=== PATIENT | female | born 1955 | race Caucasian/White ===

== ENCOUNTER 2016-08-11 15:06 | Emergency (ER) | payer BC ==
[~2016-08-11 15:06] MED LIST: NO MEDS
[2016-08-11 15:58] LABS: BASOPHILS 0.7 %; BASOPHILS ABSOLUTE 0.06 10/3/uL (0.0-0.16); EOSINOPHILS 3.2 %; EOSINOPHILS ABSOLUTE 0.26 10/3/uL (0.0-0.53); HEMATOCRIT 31.5 % (36.0-48.0); IMMATURE GRANULOCYTES 0.1 %; IMMATURE GRANULOCYTES ABSOLUTE 0.01 10/3/uL (0.0-0.11); LYMPHOCYTES ABSOLUTE 1.45 10/3/uL (0.67-4.30); MEAN CORPUS HGB CONC 28.6 g/dL (32.0-36.0); MEAN CORPUSCULAR HEMOGLOB 18.6 pg (26.0-34.0); MEAN CORPUSCULAR VOLUME 64.9 fL (80-100); MEAN PLATELET VOLUME 9.4 fL (9.2-13.0); MONOCYTES 7.1 %; MONOCYTES ABSOLUTE 0.57 10/3/uL (0.21-1.20); NEUTROPHILS 70.9 %; PLATELET COUNT 261 10/3/uL (150-400); RBC DISTRIBUTION WIDTH 18.9 % (12.0-16.0); RED CELL COUNT 4.85 10/6/uL (4.0-5.6)
[2016-08-11 16:01] LABS: ASCORBIC ACID (UR NOT ORDER) NEG (NEG); BILIRUBIN, URINE NEGATIVE (NEG); ER URINALYSIS TAT 0 Hrs 14 Mins; KETONE, URINE NEGATIVE (NEG); LEUKOCYTE ESTERASE(NOT OR LARGE (NEG); NITRITE (URINE) NEG (NEG); WBC (NOT ORDERED) (RFLEX) 5 (0-5)
[2016-08-11 16:02] LABS: ER CBC TAT 0 Hrs 15 Mins; MANUAL DIFF NO %; WHITE BLOOD CELLS 8.1 10/3/uL (4.5-10.5)
[2016-08-11 16:06] LABS: A/G RATIO 1.1 (0.7-1.9); ALBUMIN 3.6 G/DL (3.5-5.0); ALKALINE PHOSPHATASE 88 U/L (45-117); BUN (BLOOD UREA NITROGEN) 14 MG/DL (6-23); CALCIUM, SERUM 8.5 MG/DL (8.5-10.4); CHLORIDE, SERUM 109 MMOL/L (96-112); CO2 (CARBON DIOXIDE) 24 MMOL/L (24-34); CREATININE 0.72 MG/DL (0.55-1.02); GFR AFRICAN AMERICAN 103 ML/MIN (>=60); GFR NON AFRICAN AMERICAN 89 ML/MIN (>=60); GLOBULIN 3.2 G/DL (2.5-4.1); GLUCOSE, SERUM 77 MG/DL (60-99); SGOT(AST) 18 U/L (5-40); SGPT(ALT) 18 U/L (5-65); SODIUM, SERUM 143 MMOL/L (135-148); TOTAL BILIRUBIN 0.2 MG/DL (0-1.2); TOTAL PROTEIN 6.8 G/DL (6.0-8.5)
[2016-08-11 16:08] LABS: LACTATE 0.8 MMOL/L (0.3-2.4)
[2016-08-11 16:17] LABS: ANISOCYTOSIS 1+ (5-10/OIF) (0-5/OIF); PLATELET ESTIMATE ADQ (ADEQUATE)
[2016-08-11 16:18] LABS: TEARDROP SHAPED RBCS OCC (0-2/OIF)
[2016-08-11 16:25] LABS: HYPOCHROMIA 3+ (>30/OIF) (0-2/OIF)
== END 2016-08-11 19:02 | disposition home or self-care (01) ==
LOC: ER 15:06
PROVIDERS: Hospitalist; Physician Assistant
DX: K29.70 Gastritis, unspecified, without bleeding (principal); K21.9 Gastro-esophageal reflux disease without esophagitis; F17.200 Nicotine dependence, unspecified, uncomplicated
CPT/HCPCS: 74176; 80053; 81001; 83605; 83690; 85025; 87086; 96374; 96375; 99284; A9270-GY; J2405

== ENCOUNTER 2016-08-13 04:05 | Inpatient (IN) | payer BC ==
--- NOTE | ~2016-08-13 | CN ---
Consultation Report [facility] [address] [place]. [address] NAME: TAMMY MAI : 51 STATUS : ADM IN [facility]#: [id number] AGE: 61 ADM/REG DATE : 08/13/16 MR#: [id number] REPORT SERV DATE: 08/13/16 DICTATED BY: MARY JO WOODALL DATE: 08/13/16 REPORT STATUS : Draft TRANSCRIBED BY: MODBharathi DATE: 08/13/16 GI CONSULT DATE OF CONSULTATION: REASON FOR CONSULTATION: GI consult regarding hematemesis. HISTORY OF PRESENT ILLNESS: This is a 61-year-old, woman, who presented with hematemesis. She has had chronic epigastric discomfort for the past one year, worsening over the past three weeks. She awakened from sleep last night with nausea and subsequent hematemesis bright red blood. She has had no hematemesis since that time. She has had intermittent GERD symptoms, but no dysphagia. She was not taking acid suppression up until a couple of days ago. She has been taking both Aleve and ibuprofen chronically. She has had no diarrhea or constipation. No melena or hematochezia other than this morning, at which point she developed melena. No recent endoscopy. MEDICAL HISTORY: Remarkable for rotator cuff repair and ectopic . ALLERGIES: NONE. MEDICATIONS: Tylenol, Prilosec as needed, and Carafate. FAMILY HISTORY: Negative for GI malignancy. SOCIAL HISTORY: She does not use alcohol significantly. REVIEW OF SYSTEMS: A complete review of systems was obtained and negative except that noted in the history of present illness. PHYSICAL EXAMINATION: VITAL SIGNS: She is afebrile. Heart rate is 70, blood pressure systolic 120, respirations 16. HEENT: Sclerae anicteric. NECK: Supple without lymphadenopathy. Pharynx is pink without exudate. LUNGS: Clear to auscultation bilaterally. HEART: Regular rate and rhythm. S1 and S2 heard without rubs or gallops. ABDOMEN: Normal bowel sounds. Belly is soft and nondistended. There is mild epigastric tenderness without rebound or guarding. No hepatosplenomegaly is detected. EXTREMITIES: No pedal edema or rash. NEUROLOGIC: Alert and oriented without focal deficit. Muscle exam is nontender. DATA: White blood cell count 11.8, hematocrit 23.1, MCV 65.8, platelets 248. INR 1.2. BUN 25, creatinine 0.6. Liver tests are normal. Consultation Report [place] [id number] [place]. [address] NAME: TAMMY MAI : 51 STATUS : ADM IN PAT#: [id number] AGE: 61 ADM/REG DATE : 08/13/16 MR#: [id number] REPORT SERV DATE: 08/13/16 DICTATED BY: MARY JO WOODALL DATE: 08/13/16 REPORT STATUS : Draft TRANSCRIBED BY: OSCAR DATE: 08/13/16 CT scan shows thickened proximal stomach with large hiatal hernia. IMPRESSION: Hematemesis and melena in the setting of NSAID use without acid suppression, likely peptic ulcer disease. I suspect Hector lesions as well given large hiatal hernia. RECOMMENDATIONS: 1. Continue Protonix drip. 2. Transfusion with packed red blood cells. 3. EGD to follow. CC/OSCAR Mary Jo Woodall M.D. / [id number] CC: Nate River M.D.
--- NOTE | ~2016-08-13 | HP ---
History And Physical [place] [id number] [facility] [place]. [address] NAME: TAMMY DOUGLAS : 51 STATUS : ADM IN [facility]#: [id number] AGE: 61 ADM/REG DATE : 08/13/16 MR#: [id number] REPORT SERV DATE: 08/13/16 DICTATED BY: PAUL CARNES DATE: 08/13/16 REPORT STATUS : Draft TRANSCRIBED BY: MODBharathi DATE: 08/13/16 DATE OF ADMISSION: 08/13/2016 REASON FOR ADMISSION: Acute upper GI bleed with acute blood loss anemia. HISTORY OF PRESENT ILLNESS: Ms. Douglas is a 61-year-old woman with a history of hiatal hernia, acid reflux, COPD, chronic bronchitis, and ongoing smoking. She chronically takes NSAIDs for various chronic pains and had recently been seen in the emergency department for GI discomfort, abdominal pain, but workup has been okay. She returned because she had large bright red blood hematemesis at home, was found to have significant acute anemia. She is hemodynamically stable. States that she feels fine despite the hematemesis. She has had no recent chest pain, fevers, chills, night sweats, or significant purulence of sputum. PAST MEDICAL HISTORY: Significant for likely MIS with a positive screen, COPD, chronic bronchitis. She is an every day pack a day smoker with a 41-tdpf-efim history. No alcohol abuse or illicit drug use. FAMILY HISTORY: Noncontributory to this acute presentation. REVIEW OF SYSTEMS: Review of 10 systems was performed with the patient and is positive for what was noted above. PHYSICAL EXAMINATION: GENERAL: She is awake and alert. VITAL SIGNS: Her vital signs are actually fairly stable. LUNGS: Otherwise clear to auscultation and percussion bilaterally. CARDIOVASCULAR: She has S1 and S2, which are regular rate and rhythm. ABDOMEN: Benign. She has no edema, no clubbing, no cyanosis. ASSESSMENT AND PLAN: Anemia: She has acute blood loss anemia with an acute upper gastrointestinal bleed. She has been started on a Protonix drip and is being seen by GI with plans of an upper GI endoscopy this morning. The concern is for acute peptic ulcer disease, particularly given her hiatal hernia, acid reflux, and chronic use of NSAIDs, and chronic use of tobacco. She has an acute exacerbation of her chronic obstructive pulmonary disease and will remain on her chronic maintenance medications minus the NSAIDs. CB/OSCAR Paul Carnes M.D. / [id number] History And Physical [address] [address] NAME: TAMMY DOUGLAS : 51 STATUS : ADM IN PAT#: [id number] AGE: 61 ADM/REG DATE : 08/13/16 MR#: [id number] REPORT SERV DATE: 08/13/16 DICTATED BY: PAUL CARNES DATE: 08/13/16 REPORT STATUS : Draft TRANSCRIBED BY: OSCAR DATE: 08/13/16 CC: Paul Carnes M.D.
--- NOTE | ~2016-08-13 | OP ---
[place] Of [place] [id number] [place]. [address] NAME: TAMMY MAI : 51 STATUS : ADM IN [facility]#: [id number] AGE: 61 ADM/REG DATE : 08/13/16 MR#: [id number] REPORT SERV DATE: 08/13/16 DICTATED BY: MARY JO WOODALL DATE: 08/13/16 REPORT STATUS : Draft TRANSCRIBED BY: MODBharathi DATE: 08/13/16 DATE OF PROCEDURE: 08/13/2016 PROCEDURE: Esophagogastroduodenoscopy with biopsy. INDICATIONS: Hematemesis with melena. Recent NSAID use. MEDICATIONS: As per Anesthesia. The patient was intubated prior to the examination for airway protection. CONSENT: Informed consent was obtained from the patient by me prior to the procedure. Risks, benefits, and alternatives were discussed including the risk of bleeding, perforation, infection, reaction to medicine, missed lesion, and cardiopulmonary complications. DESCRIPTION OF PROCEDURE: After the patient was sedated, intubated, placed in the left lateral decubitus position, the gastroscope was passed into the mouth and advanced under direct visualization to the second portion of the duodenum without difficulty. The endoscope was withdrawn with careful examination of mucosa throughout the duodenum, entire stomach with gastric retroflexion, and esophagus. Views were excellent. The patient tolerated the procedure well. FINDINGS: 1. Normal-appearing duodenum. 2. Multiple superficial 5 mm gastric ulcerations found within the antrum, biopsied. 3. Normal-appearing body of stomach. 4. Multiple superficial ulcerations (Hector lesions) located over the hiatal hernia. 5. Hiatal hernia. 6. Punched-out 10 mm gastric ulcer with normal surrounding edges located high on the lesser curve. No visible vessel or other stigmata. 7. Normal-appearing esophagus other than [place] class A esophagitis. RECOMMENDATIONS: 1. Stop NSAIDs. 2. Protonix drip. 3. ICU today and monitor hematocrit. Clear liquid diet for now. CC/JIMENEZL Mary Jo Woodall M.D. / [id number] Record Of [facility] [address] [place]. [address] NAME: TAMMY MAI : 51 STATUS : ADM IN PAT#: [id number] AGE: 61 ADM/REG DATE : 08/13/16 MR#: [id number] REPORT SERV DATE: 08/13/16 DICTATED BY: MARY JO WOODALL DATE: 08/13/16 REPORT STATUS : Draft TRANSCRIBED BY: OSCAR DATE: 08/13/16 CC: Nate River M.D.
--- NOTE | ~2016-08-13 | DS ---
Discharge Summary [facility] [address] [facility] [place]. [address] NAME: TAMMY MAI : 51 STATUS : ADM IN [facility]#: [id number] AGE: 61 ADM/REG DATE : 08/13/16 MR#: [id number] REPORT SERV DATE: 08/15/16 DICTATED BY: SHAWN BUENROSTRO DATE: 08/15/16 REPORT STATUS : Draft TRANSCRIBED BY: MODL DATE: 08/15/16 ADMISSION DATE: 08/13/2016 DISCHARGE DATE: 08/15/2016 FINAL HOSPITAL DIAGNOSES: 1. Gastrointestinal bleed. 2. Chronic back pain. 3. Chronic headaches. CONSULTATIONS: Dr. Gabriel Woodall, GI. PROCEDURES: 1. Upper endoscopy showing normal appearing duodenum, multiple superficial 5 mm gastric ulcerations within the antrum, normal appearing body of the stomach, multiple superficial ulcerations over the hiatal hernia. Punched-out 10 mm gastric ulcer with normal surrounding edges, located high in the lesser curvature, no visible vessel or other stigmata, normal-appearing esophagus other than class A esophagitis. 2. CT of the abdomen and pelvis done on 08/11/2016 showing large hiatal hernia, upper third of the stomach residing intrathoracically, mid and upper stomach appeared thickened with some edema and the surrounding fat. Also, multiple tiny lymph nodes within the lower mediastinum surrounding the stomach measuring up to 7 mm in size, may be due to gastritis with reactive lymph nodes. Ischemia underlying neoplasm is less likely. Trace fluid along the lesser curvature of the stomach. No free air. No bowel obstruction. Low-density right adrenal mass most compatible with an adenoma. Hepatic steatosis, small fat containing umbilical and supraumbilical hernias without bowel involvement. CURRENT PHYSICAL FINDINGS AND HISTORY OF PRESENT ILLNESS: Please see the initial dictated H and P by Dr. River. In brief, the patient is a 61-year-old female with the above medical history, who presented with acute GI blood loss anemia, felt severe enough to present to the ICU. Vital signs at the time of admission, BP was 197/48, subsequent blood pressures average 120s to 130s over 70. No fever during her hospital stay. Initial heart rate was 92. Lab work; BMP was unremarkable. LFTs were unremarkable. Lactate was 0.8. Initial hemoglobin was 6.3 post transfusion. The patient now received 8.5 to 9, and was stable. Urinalysis showed positive leukocyte esterase, but 14 squamous cells. Urine culture showed multiple suspected contamination. The patient was admitted to the ICU. Overall, she received 3 units of packed red blood cells. GI was consulted and recommended upper endoscopy which was as above. She was placed on a Protonix drip. She was started on mechanical DVT prophylaxis, given her bleeding risk. Her NSAIDs were held. She was able to transfer out of the ICU when stable. She advanced her diet on the floor, had no further bleeding. GI felt she was stable for discharge. She was discharged in stable condition on 08/15/2016. DISPOSITION: Discharged home. MEDICATIONS: Prescription for tramadol 50 mg q.6 p.r.n. was given. She will avoid all over- Discharge Summary [address] [place]. [address] NAME: TAMMY MAI : 51 STATUS : ADM IN [facility]#: [id number] AGE: 61 ADM/REG DATE : 08/13/16 MR#: [id number] REPORT SERV DATE: 08/15/16 DICTATED BY: SHAWN BUENROSTRO DATE: 08/15/16 REPORT STATUS : Draft TRANSCRIBED BY: OSCAR DATE: 08/15/16 the-counter NSAIDs. She will continue her Prilosec 20, but increased to b.i.d. dosing to also continue her Carafate until gone, and Tylenol p.r.n. after that. DISCHARGE PLANNING: We will assist with trying to find her a PCP for followup. DICTATED BY: Jamison Sifuentes/OSCAR Shawn Buenrostro M.D. / [id number] CC: Shawn Buenrostro M.D.
[2016-08-13 04:16] LABS: INTERNATIONAL NORMAL RATI 1.2 UNITS (-); PARTIAL THROMBO TIME 26.1 SEC (22.5-37.2)
[2016-08-13 04:17] LABS: BASOPHILS 0.3 %; BASOPHILS ABSOLUTE 0.04 10/3/uL (0.0-0.16); EOSINOPHILS ABSOLUTE 0.24 10/3/uL (0.0-0.53); IMMATURE GRANULOCYTES 0.3 %; IMMATURE GRANULOCYTES ABSOLUTE 0.03 10/3/uL (0.0-0.11); LYMPHOCYTES 8.8 %; LYMPHOCYTES ABSOLUTE 1.03 10/3/uL (0.67-4.30); MEAN CORPUS HGB CONC 27.3 g/dL (32.0-36.0); MEAN CORPUSCULAR HEMOGLOB 17.9 pg (26.0-34.0); MEAN CORPUSCULAR VOLUME 65.8 fL (80-100); MEAN PLATELET VOLUME 9.5 fL (9.2-13.0); MONOCYTES 5.5 %; MONOCYTES ABSOLUTE 0.65 10/3/uL (0.21-1.20); NEUTROPHILS 83.1 %; NEUTROPHILS ABSOLUTE 9.77 10/3/uL (2.02-8.40); PLATELET COUNT 248 10/3/uL (150-400); RBC DISTRIBUTION WIDTH 19.4 % (12.0-16.0)
[2016-08-13 04:18] LABS: ER CBC TAT 0 Hrs 14 Mins; HEMATOCRIT 23.1 % (36.0-48.0); HEMOGLOBIN 6.3 g/dL (12.0-16.0); RED CELL COUNT 3.51 10/6/uL (4.0-5.6); WHITE BLOOD CELLS 11.8 10/3/uL (4.5-10.5)
[2016-08-13 04:19] LABS: MANUAL DIFF NO %
[2016-08-13 04:23] LABS: BUN (BLOOD UREA NITROGEN) 25 MG/DL (6-23); CALCIUM, SERUM 7.7 MG/DL (8.5-10.4); CHLORIDE, SERUM 115 MMOL/L (96-112); CO2 (CARBON DIOXIDE) 24 MMOL/L (24-34); CREATININE 0.68 MG/DL (0.55-1.02); GFR AFRICAN AMERICAN 108 ML/MIN (>=60); GFR NON AFRICAN AMERICAN 93 ML/MIN (>=60); GLUCOSE, SERUM 194 MG/DL (60-99); POTASSIUM, SERUM 3.8 MMOL/L (3.5-5.3); SGOT(AST) 9 U/L (5-40); SGPT(ALT) 14 U/L (5-65); SODIUM, SERUM 145 MMOL/L (135-148); TOTAL BILIRUBIN 0.1 MG/DL (0-1.2); TOTAL PROTEIN 5.1 G/DL (6.0-8.5)
[2016-08-13 04:24] LABS: ALBUMIN 2.5 G/DL (3.5-5.0); ALKALINE PHOSPHATASE 66 U/L (45-117); GLOBULIN 2.6 G/DL (2.5-4.1)
[2016-08-13] MEDS ORDERED: PRILO PO (04:32)
[2016-08-13] MEDS ORDERED: SUCR PO (04:33)
[2016-08-13] MEDS ORDERED: T PO (04:33)
[2016-08-13] MEDS ORDERED: STAY AWAKE PO (04:36)
[2016-08-13 04:37] LABS: ANISOCYTOSIS 1+ (5-10/OIF) (0-5/OIF); HYPOCHROMIA 3+ (>30/OIF) (0-2/OIF); PLATELET ESTIMATE ADQ (ADEQUATE); POLYCHROMASIA 1+ (2-5/OIF) (0-1/OIF)
[2016-08-13] MEDS ORDERED: 8 HOUR650 MG PO (04:37)
[2016-08-13 10:15] LABS: HEMATOCRIT 27.8 % (36.0-48.0); HEMOGLOBIN 8.6 g/dL (12.0-16.0)
[2016-08-13 16:50] LABS: HEMATOCRIT 24.7 % (36.0-48.0); HEMOGLOBIN 7.5 g/dL (12.0-16.0)
[2016-08-13 22:59] LABS: HEMATOCRIT 27.1 % (36.0-48.0); HEMOGLOBIN 8.5 g/dL (12.0-16.0)
[2016-08-14 05:02] LABS: HEMATOCRIT 27.2 % (36.0-48.0); HEMOGLOBIN 8.4 g/dL (12.0-16.0)
[2016-08-14 10:24] LABS: HEMATOCRIT 28.6 % (36.0-48.0); HEMOGLOBIN 8.7 g/dL (12.0-16.0)
[2016-08-14 16:52] LABS: HEMATOCRIT 30.3 % (36.0-48.0); HEMOGLOBIN 9.5 g/dL (12.0-16.0)
[2016-08-14 21:50] LABS: HEMATOCRIT 27.6 % (36.0-48.0); HEMOGLOBIN 8.5 g/dL (12.0-16.0)
[2016-08-15 05:52] LABS: BASOPHILS ABSOLUTE 0.06 10/3/uL (0.0-0.16); EOSINOPHILS 4.3 %; EOSINOPHILS ABSOLUTE 0.26 10/3/uL (0.0-0.53); HEMATOCRIT 29.7 % (36.0-48.0); HEMOGLOBIN 9.1 g/dL (12.0-16.0); IMMATURE GRANULOCYTES 0.2 %; IMMATURE GRANULOCYTES ABSOLUTE 0.01 10/3/uL (0.0-0.11); LYMPHOCYTES 25.2 %; LYMPHOCYTES ABSOLUTE 1.54 10/3/uL (0.67-4.30); MEAN PLATELET VOLUME 9.3 fL (9.2-13.0); MONOCYTES 7.7 %; MONOCYTES ABSOLUTE 0.47 10/3/uL (0.21-1.20); NEUTROPHILS 61.6 %; NEUTROPHILS ABSOLUTE 3.77 10/3/uL (2.02-8.40); PLATELET COUNT 220 10/3/uL (150-400); RBC DISTRIBUTION WIDTH 21.5 % (12.0-16.0); RED CELL COUNT 4.19 10/6/uL (4.0-5.6)
[2016-08-15 05:55] LABS: MANUAL DIFF NO %; MEAN CORPUS HGB CONC 30.6 g/dL (32.0-36.0); MEAN CORPUSCULAR HEMOGLOB 21.7 pg (26.0-34.0); MEAN CORPUSCULAR VOLUME 70.9 fL (80-100); WHITE BLOOD CELLS 6.1 10/3/uL (4.5-10.5)
[2016-08-15 06:07] LABS: ALKALINE PHOSPHATASE 67 U/L (45-117); CALCIUM, SERUM 8.6 MG/DL (8.5-10.4); CHLORIDE, SERUM 114 MMOL/L (96-112); CO2 (CARBON DIOXIDE) 25 MMOL/L (24-34); CREATININE 0.52 MG/DL (0.55-1.02); GFR AFRICAN AMERICAN 118 ML/MIN (>=60); GFR NON AFRICAN AMERICAN 102 ML/MIN (>=60); PHOSPHORUS, SERUM 3.2 MG/DL (2.5-4.5); SGOT(AST) 10 U/L (5-40); SGPT(ALT) 16 U/L (5-65); SODIUM, SERUM 144 MMOL/L (135-148); TOTAL BILIRUBIN 0.3 MG/DL (0-1.2); TOTAL PROTEIN 6.1 G/DL (6.0-8.5)
[2016-08-15 06:08] LABS: BUN (BLOOD UREA NITROGEN) 6 MG/DL (6-23); DIRECT BILIRUBIN < 0.1 MG/DL (0.0-0.4); GLUCOSE, SERUM 95 MG/DL (60-99); INDIRECT BILIRUBIN(NOT ORDER) 0.2 MG/DL (0.1-0.9)
[2016-08-15 06:33] LABS: ANISOCYTOSIS 1+ (5-10/OIF) (0-5/OIF); PLATELET ESTIMATE ADQ (ADEQUATE); POLYCHROMASIA 1+ (2-5/OIF) (0-1/OIF)
[2016-08-15 06:34] LABS: ELLIPTOCYTES 1+ (3-10/OIF) (0-2/OIF)
[2016-08-15 10:08] LABS: HEMATOCRIT 29.5 % (36.0-48.0)
[2016-08-15] MEDS ORDERED: ULTRAM50 PO (13:51)
== END 2016-08-15 15:32 | disposition home or self-care (01) | DRG 378 ==
LOC: ER 04:05 → MIC 04:52 → 2SO 08-14 13:29
PROVIDERS: Internal Medicine Gastroenterology; Internal Medicine Pulmonary Disease; Specialist
PROC: 0DB68ZX Excision of Stomach, Via Natural or Artificial Opening Endoscopic, Diagnostic (ICD-10-PCS; 2016-08-13)
PROC: 30233N1 Transfusion of Nonautologous Red Blood Cells into Peripheral Vein, Percutaneous Approach (ICD-10-PCS; principal; 2016-08-13 09:10)
DX: K25.4 Chronic or unspecified gastric ulcer with hemorrhage (principal); D62 Acute posthemorrhagic anemia; J44.9 Chronic obstructive pulmonary disease, unspecified; K44.9 Diaphragmatic hernia without obstruction or gangrene; K21.9 Gastro-esophageal reflux disease without esophagitis; J40 Bronchitis, not specified as acute or chronic; F17.210 Nicotine dependence, cigarettes, uncomplicated; G47.33 Obstructive sleep apnea (adult) (pediatric); K29.70 Gastritis, unspecified, without bleeding
CPT/HCPCS: 36415; 36430; 74176; 80048; 80053; 80076; 81001; 83605; 83690; 83735; 84100; 85014; 85018; 85025; 85610; 85730; 86850; 86900; 86901; 86920; 87086; 87641; 88305; 93005; 94640; 96374; 96375; 99284; 99291; A9270-GY; C9113; J2405; P9016

== ENCOUNTER 2016-08-17 15:16 | Inpatient (IN) | payer BC ==
--- NOTE | ~2016-08-17 | HP ---
History And Physical [place] [id number] [facility] [place]. [address] NAME: TAMMY MAI : 51 STATUS : REG ER PAT#: [id number] AGE: 61 ADM/REG DATE : 08/17/16 MR#: [id number] REPORT SERV DATE: 08/17/16 DICTATED BY: DANIELLE EL DATE: 08/17/16 REPORT STATUS : Draft TRANSCRIBED BY: MODL DATE: 08/17/16 DATE OF ADMISSION: 08/17/2016 CHIEF COMPLAINT: GI bleed and abdominal pain. HISTORY OF PRESENT ILLNESS: Obtained from the patient as well as from emergency room documents. Also, prior medical records available to us were thoroughly reviewed. Please note, the patient was just admitted here on 08/13/2016 initially to intensive care unit and then to our Hospitalist Service, and she was discharged home two days ago on 08/15/2016. Discharge diagnosis was GI bleed with upper GI bleed and hematemesis, status post blood transfusion of three units of PRBC for significant acute anemia. The patient was seen and evaluated by GI consult with upper endoscopy performed on 08/13/2016 in intensive care unit. The patient apparently remained stable at the time of discharge with stable H and H with recommendations to avoid NSAIDs. She returned today 48 hours after discharge with abdominal pain, moderate sharp, in the middle of the abdomen, associated with two episodes of bloody stools last night prior to arrival in the emergency room. In the emergency room, the patient was investigated and laboratory data showed significant decrease in her hemoglobin and hematocrit with hemoglobin 7.2 and hematocrit 24.2 from hematocrit 29.5 two days ago and Hemoccult-positive stools. Therefore, the patient was referred to the Hospitalist Service for further management and evaluation. Note that the GI consultation is already obtained and they are aware of the patient's presence and further evaluation with a colonoscopy to be performed tomorrow as per initial planning. Note there is also CT scan of the abdomen and pelvis still pending, ordered in the emergency room. PAST MEDICAL HISTORY: As per H and P from 08/13/2016, addition of acute blood loss anemia, status post blood transfusion of three units of PRBCs during her recent previous admission. PAST SURGICAL HISTORY: As above. FAMILY HISTORY: As per previous H and P. SOCIAL HISTORY: As per previous H and P, unchanged. MEDICATIONS: The patient was discharged home on Prilosec 20 mg p.o. b.i.d., Carafate 1 g p.o. b.i.d., and Ultram 50 mg p.o. q.6 hours p.r.n. pain with recommendation to avoid NSAIDs, which previously she was taking it on a regular basis. ALLERGIES: NO KNOWN DRUG ALLERGIES. REVIEW OF SYSTEMS: As per H and P, otherwise negative in all review of systems. Unchanged from prior H and P from 08/13/2016. PHYSICAL EXAMINATION: GENERAL: Pleasant, in mild distress due to abdominal pain. VITAL SIGNS: Upon arrival in the emergency room, blood pressure 105/53, pulse 97, History And Physical [address] [address] NAME: TAMMY MAI : 51 STATUS : REG ER PAT#: [id number] AGE: 61 ADM/REG DATE : 08/17/16 MR#: [id number] REPORT SERV DATE: 08/17/16 DICTATED BY: DANIELLE EL DATE: 08/17/16 REPORT STATUS : Draft TRANSCRIBED BY: OSCAR DATE: 08/17/16 respiratory rate 16, temperature 97.8, oxygen saturation 96% on room air. HEENT: With pupils equal, round, and reactive to light. Extraocular movements intact. Throat, mild erythema. No exudate. Pale mucosa and pale conjunctivae. Atraumatic and normocephalic. NECK: Supple. No JVD. No bruit. No thyromegaly. No lymph nodes. LUNGS: Bilateral air entry with a few scattered crackles. Good airway movement. HEART: Positive S1 and S2. Regular rate and rhythm. Positive mitral regurgitation murmur at the apex/systolic ejection murmur. No rub, no gallop. PMI not displaced by palpation. ABDOMEN: Positive bowel sounds. Soft with mild tenderness in mid abdomen and epigastric area. No guarding. No rebound tenderness. No hepatosplenomegaly. EXTREMITIES: With decreased range of motion and osteoarthritic changes. No clubbing, no cyanosis, no edema, no calf tenderness. +2 pulses. NEUROLOGIC: Alert and oriented x3. Grossly nonfocal. Anxious. Cranial nerves 2 through 12 grossly intact. Motor strength 5/5 symmetrical bilateral. Deep tendon reflexes 2/2 symmetrical bilateral. BACK: With decreased range of motion. No focal localized tenderness. No CVA tenderness. SKIN: No bruises, no rashes, no lacerations. SIGNIFICANT LABORATORY DATA: Sodium 138, potassium 4.1, chloride 113, bicarb 26, BUN 12, creatinine 0.61, glucose 103, calcium 7.7, albumin 2.6. Other liver function tests within normal limits. White cell count 13 (slightly elevated), hemoglobin is 7.2 with a hematocrit of 24.2, platelet count 239. INR 1.1. CT scan of the abdomen and pelvis without contrast showed no evidence of acute abnormality, hiatal hernia, decreased inflammation of the fat adjacent to the stomach compared with 08/11/2016, stable right adrenal adenoma, and a fat containing periumbilical hernia (full report attached to chart and discussed with the patient). ASSESSMENT AND PLAN AND PROBLEM LIST: The patient is a pleasant 61-year-old white woman, admitted with significant GI bleed and significant and severe anemia. Impression: 1. GI problem:. a. GI bleed with hematochezia. b. Gastroesophageal reflux disease with esophagitis and hiatal hernia by recent endoscopy and recent admission to the hospital. c. Gastritis and Hector ulcerations. d. For all the above, the patient has been restarted on Protonix drip due to her recent history of an upper GI bleed found by upper endoscopy. We are going to obtain GI consultation, monitor H and H, monitor for any kind of hemodynamic compromise, and start preparation for possible colonoscopy in a.m. due to bright red blood and bloody stools. Continue to monitor clinically. A CT scan of the abdomen and pelvis was rechecked and actually showed some improvement compared to the one done a week ago. 2. Anemia with acute blood loss anemia. Presently severe anemia and symptomatic anemia. The patient received three units of PRBCs blood transfusion. Continue to monitor H and H with serial H and H and support with blood products as indicated. 3. Pulmonary with:. History And Physical [place] [id number] [facility] [place]. [address] NAME: TAMMY MAI : 51 STATUS : REG ER PAT#: [id number] AGE: 61 ADM/REG DATE : 08/17/16 MR#: [id number] REPORT SERV DATE: 08/17/16 DICTATED BY: DANIELLE EL DATE: 08/17/16 REPORT STATUS : Draft TRANSCRIBED BY: OSCAR DATE: 08/17/16 a. Chronic obstructive pulmonary disease with chronic bronchitis. b. Tobacco dependency disorder, severe with over 42 years of pack-year smoking history. c. Obstructive sleep apnea by history, not using CPAP machine. d. For all the above, the patient is going to be counseled regarding smoking cessation, provided with education, and offered nicotine replacement therapy as a nicotine patch 21 mg daily. Provide oxygen supplementation and bronchodilator therapy. Encouraged to follow up with primary care provider and manager economic for CPAP machine to treat obstructive sleep apnea. 4. Chronic back pain and chronic headache. The patient to continue on Ultram and avoid the NSAIDs at this moment. PROGNOSIS: Moderately good for this admission. Discussed with the patient and the patient's family. Questions were answered in full. Please note that the patient does not have a primary care provider at this moment. Please note that the patient is a full code at this moment as discussed with the patient at bedside. FRANCISCO/OSCAR Danielle El M.D. / [id number]
--- NOTE | ~2016-08-17 | EGD ---
EGD REPORT [facility] [address] [place]. [address] NAME: TAMMY DOUGLAS : 51 STATUS : ADM IN PAT#: [id number] AGE: 61 ADM/REG DATE : 08/17/16 MR#: [id number] REPORT SERV DATE: 08/18/16 DICTATED BY: JOSE LUIS AWAN DATE: 08/18/16 REPORT STATUS : Draft [facility]ANSCRIBED [facility]: [facility] DATE: 08/18/16 Endoscopy Center Patient Name: Tammy Douglas Date of : 1955 Attending MD: JOSE LUIS AWAN MD Procedure Date No Time: 08/18/2016 Procedure: Upper GI endoscopy Indications: Hematochezia, Melena Medicines: Monitored Anesthesia Care Complications: No immediate complications. Estimated blood loss: Minimal. Procedure: Pre-Anesthesia Assessment: - ASA Grade Assessment: III - A patient with severe systemic disease. After obtaining informed consent, the endoscope was passed under direct vision. Throughout the procedure, the patient's blood pressure, pulse, and oxygen saturations were monitored continuously. The GIF [id number] was introduced through the mouth, and advanced to the third part of duodenum. The upper GI endoscopy was accomplished without difficulty. The patient tolerated the procedure well. Findings: The examined esophagus was normal. A large hiatus hernia was present. One non-bleeding cratered gastric ulcer with a visible vessel was found in the gastric fundus. The lesion was 20 mm in largest dimension. Area was successfully injected with 4 mL of a 1:10,000 solution of epinephrine for hemostasis. Fulguration to ablate the lesion to prevent bleeding by bipolar probe was successful. Estimated blood loss was minimal. Many non-bleeding superficial gastric ulcers with no stigmata of bleeding were found in the gastric antrum. The largest lesion was 3 mm in largest dimension. Biopsies were taken with a cold forceps for Helicobacter pylori testing. Estimated blood loss was minimal. The examined duodenum was normal. The exam was otherwise without abnormality. Impression: - Hiatus hernia. - Gastric ulcer containing visible vessel. Injected. Treated by fulguration. - Gastric ulcers with clean base. Biopsied. - The examination was otherwise normal. EGD REPORT [address] [address] NAME: TAMMY DOUGLAS : 51 STATUS : ADM IN PAT#: [id number] AGE: 61 ADM/REG DATE : 08/17/16 MR#: [id number] REPORT SERV DATE: 08/18/16 DICTATED BY: JOSE LUIS AWAN DATE: 08/18/16 REPORT STATUS : Draft TRANSCRIBED BY: [employer] DATE: 08/18/16 Recommendation: - Clear liquid diet and then advance diet as tolerated by symptoms. - Give Protonix (pantoprazole): 8 mg/hr IV by continuous infusion for 3 days. - Await pathology results. - Perform a colonoscopy today. Procedure Code(s): --- Professional --- 20175, 59, Esophagogastroduodenoscopy, flexible, transoral; with control of bleeding, any method 93213, Esophagogastroduodenoscopy, flexible, transoral; with biopsy, single or multiple Diagnosis Code(s): --- Professional --- K44.9, Diaphragmatic hernia without obstruction or gangrene K25.4, Chronic or unspecified gastric ulcer with hemorrhage K25.9, Gastric ulcer, unspecified as acute or chronic, without hemorrhage or perforation K92.1, Melena CPT copyright 2013 [employer]. All rights reserved. The codes documented in this report are preliminary and upon plant safety leader review may be revised to meet current compliance requirements. Jose Luis Awan MD JOSE LUIS AWAN MD 08/18/2016 8:59 AM This report has been signed electronically. Number of Addenda: 0 Note Initiated On: 08/18/2016 8:24 AM Scope Withdrawal Time 0 hours 0 minutes 0 seconds [address] [id number]
--- NOTE | ~2016-08-17 | DS ---
Discharge Summary [facility] [address] [place]. [address] NAME: TAMMY DOUGLAS : 51 STATUS : DIS IN PAT#: [id number] AGE: 61 ADM/REG DATE : 08/17/16 MR#: [id number] REPORT SERV DATE: 08/22/16 DICTATED BY: JOSE L MEREDITH DATE: 08/21/16 REPORT STATUS : Draft TRANSCRIBED BY: MODL DATE: 08/21/16 ADMISSION DATE: 08/17/2016 DISCHARGE DATE: 08/21/2016 Ms. Douglas is a 61-year-old female with a history of hypertension and tobacco abuse, who presented to the hospital with complaints of abdominal pain and hematochezia. For further details, please refer to H and P dictated by Dr. El on 08/17/2016. HOSPITAL COURSE: Upon presentation to the emergency room, the patient was admitted under Hospitalist Service, was diagnosed with upper GI bleed. Gastroenterology was subsequently consulted. For further details, please refer to consultation note dictated by Dr. Barillas on 08/18/2016. Status post GI evaluation, the patient was taken to the Endoscopy Suite for an upper endoscopy. Please refer to procedure note dictated by Dr. Barillas on 08/18/2016. Findings of the EGD were significant for a large gastric ulcer containing visible vessel, which was also treated. The patient was returned to the medical floor for further management. Given the findings on EGD and given high risk of rebleed, the patient was kept in-house for observation for 72 hours status post procedure on PPI drip. The patient has remained hemodynamically stable with no further evidence of bleed and her hemoglobin has remained stable. Also, this hospitalization, the patient was noted to be hypertensive. She was subsequently started on medication with subsequent control of her blood pressure. Also, workup did note the patient to be severely iron deficient and was subsequently started on iron supplementation. Given the patient's resolution of symptoms, given clearance by Gastroenterology, and given completion of management, the patient will be discharged home today. The patient did not have a primary care physician on presentation. Primary care physician has been assigned to the patient and an appointment has been scheduled. The patient has been instructed to follow up with primary care physician. The patient was also counseled to stay away from NSAIDs. The patient voices understanding and is agreeable with this plan. DISCHARGE DIAGNOSES: 1. Upper gastrointestinal bleed. 2. Hypertension. 3. Iron deficiency/microcytic anemia. 4. Gastroesophageal reflux disease. 5. Chronic obstructive pulmonary disease. 6. Obesity. 7. Tobacco abuse. DISCHARGE PHYSICAL EXAMINATION: VITAL SIGNS: Blood pressure 158/67 with a pulse of 67, respirations 14, O2 saturation 96% on room air. GENERAL: The patient appears stated age, in no acute distress. HEENT: Normocephalic, atraumatic. Extraocular motors intact. Moist oral mucosa. NECK: Trachea midline and symmetric. No JVD. No thyromegaly. No lymphadenopathy noted. CHEST: Nontender to palpation. No scars noted. CARDIOVASCULAR: Regular rate and rhythm. Positive 3/6 systolic murmur noted in the precordium. Discharge Summary [address] [place]. [address] NAME: TAMMY DOUGLAS : 51 STATUS : DIS IN PAT#: [id number] AGE: 61 ADM/REG DATE : 08/17/16 MR#: [id number] REPORT SERV DATE: 08/22/16 DICTATED BY: JOSE L MEREDITH DATE: 08/21/16 REPORT STATUS : Draft TRANSCRIBED BY: OSCAR DATE: 08/21/16 LUNGS: Clear to auscultation bilaterally. No added breath sounds. ABDOMEN: Obese. Positive bowel sounds. Nontender. Nondistended. EXTREMITIES: No cyanosis, no clubbing, no edema. NEUROLOGIC: Alert and oriented x3. No focal deficits appreciated. IMAGING: Impression: 1. No evidence of acute abnormality within the abdomen or pelvis. 2. Hiatal hernia. Decreased inflammation of fat adjacent to the stomach compared with 08/11/2016. 3. Stable right adrenal adenoma. 4. Fat-containing periumbilical hernia. PROCEDURES: Upper GI endoscopy performed on 08/18/2016, please refer to procedure note for further details. CONSULTANTS: Dr. Barillas of GI. DISPOSITION: The patient will be discharged home. ACTIVITY: As tolerated. DIET: Regular diet. Greater than 30 minutes were spent providing counseling, writing prescription, medication reconciliation, and dictation of note. DICTATED BY: MD ESAU Crooks/OSCAR Jose L Meredith MD / [id number] CC: Jose L Meredith MD
--- NOTE | ~2016-08-17 | EGD ---
EGD REPORT [facility] [address] [place] [address] NAME: TAMMY DOUGLAS : 51 STATUS : ADM IN PAT#: [id number] AGE: 61 ADM/REG DATE : 08/17/16 MR#: [id number] REPORT SERV DATE: 08/18/16 DICTATED BY: JOSE LUIS AWAN DATE: 08/18/16 REPORT STATUS : Draft TRANSCRIBED BY: [facility] DATE: 08/18/16 Endoscopy Center Patient Name: Tammy Douglas Date of : 1955 Attending MD: JOSE LUIS AWAN MD Procedure Date No Time: 08/18/2016 Procedure: Colonoscopy Indications: Hematochezia Medicines: Monitored Anesthesia Care Complications: No immediate complications. Estimated blood loss: Minimal. Procedure: Pre-Anesthesia Assessment: - ASA Grade Assessment: III - A patient with severe systemic disease. After I obtained informed consent, the scope was passed under direct vision. Throughout the procedure, the patient's blood pressure, pulse, and oxygen saturations were monitored continuously. The CF [id number] was introduced through the anus and advanced to the terminal ileum, with identification of the appendiceal orifice and IC valve. The colonoscopy was performed without difficulty. The patient tolerated the procedure well. The quality of the bowel preparation was good. Findings: The perianal and digital rectal examinations were normal. Pertinent negatives include no palpable rectal lesions. Five sessile polyps were found in the sigmoid colon. The polyps were 3 to 4 mm in size. These polyps were removed with a cold biopsy forceps. Resection and retrieval were complete. Estimated blood loss was minimal. Non-bleeding internal hemorrhoids were found during retroflexion and were small. The exam was otherwise without abnormality. Impression: - Five 3 to 4 mm polyps in the sigmoid colon. Resected and retrieved. - Non-bleeding internal hemorrhoids. - The examination was otherwise normal. Recommendation: - Return patient to hospital mc for ongoing care. - Clear liquid diet today. - Await pathology results. - Repeat colonoscopy for surveillance based on pathology results. EGD REPORT [facility] [address] [place]. [address] NAME: TAMMY DOUGLAS : 51 STATUS : ADM IN [facility]#: [id number] AGE: 61 ADM/REG DATE : 08/17/16 MR#: [id number] REPORT SERV DATE: 08/18/16 DICTATED BY: JOSE LUIS AWAN DATE: 08/18/16 REPORT STATUS : Draft TRANSCRIBED BY: [employer] DATE: 08/18/16 Procedure Code(s): --- Professional --- 99600, Colonoscopy, flexible, proximal to splenic flexure; with biopsy, single or multiple Diagnosis Code(s): --- Professional --- D12.5, Benign neoplasm of sigmoid colon K64.8, Other hemorrhoids K92.1, Melena CPT copyright 2013 [employer]. All rights reserved. The codes documented in this report are preliminary and upon biology instructor review may be revised to meet current compliance requirements. Jose Luis Awan MD JOSE LUIS AWAN MD 08/18/2016 9:26 AM This report has been signed electronically. Number of Addenda: 0 Note Initiated On: 08/18/2016 8:55 AM Scope Withdrawal Time 0 hours 13 minutes 7 seconds [id number] [place] [address]
--- NOTE | ~2016-08-17 | CN ---
Consultation Report [facility] [address] [place]. [address] NAME: TAMMY DOUGLAS : 51 STATUS : ADM IN [facility]#: [id number] AGE: 61 ADM/REG DATE : 08/17/16 MR#: [id number] REPORT SERV DATE: 08/18/16 DICTATED BY: JOSE LUIS AWAN DATE: 08/18/16 REPORT STATUS : Draft TRANSCRIBED BY: MODL DATE: 08/18/16 INPATIENT CONSULTATION DATE OF CONSULTATION: 08/18/2016 REASON FOR CONSULTATION: Recurrent GI bleeding. HISTORY OF PRESENT ILLNESS: Mrs. Douglas is a very pleasant 61-year-old female with a past medical history significant for recent GI bleeding and peptic ulcer disease, who presented to the [facility] with complaints of recurrent GI bleeding. The patient was recently admitted from 08/13/2016 through 08/15/2016 and was found during endoscopy at that time to have a large cratered ulcer in the gastric fundus adjacent to a large hiatal hernia. The patient was subsequently discharged after finding that her hemoglobin had been stable. However, the patient now re-presents with passing red blood and black stool and was noted to have a drop in her hemoglobin down to 7.2. Hematocrit was 24 on presentation, whereas discharged two days prior her hematocrit was almost 30. REVIEW OF SYSTEMS: All systems reviewed and were negative. The patient denied any nausea or vomiting. No fevers or chills. No abdominal pain. PAST MEDICAL HISTORY: Includes: 1. Hiatal hernia. 2. GERD. 3. COPD. 4. Tobacco use. 5. Peptic ulcer disease. 6. NSAID use for various chronic pains. 7. Obstructive sleep apnea. FAMILY HISTORY: The patient has no family history of GI related malignancy. SOCIAL HISTORY: The patient smokes a pack a day and has done so for more than forty years. No alcohol or illicit substance use. ALLERGIES: THE PATIENT HAS ALLERGIES TO NO KNOWN DRUGS. OUTPATIENT MEDICATIONS: Include: 1. Prilosec 20 mg p.o. twice daily. 2. Sucralfate 1 g p.o. twice daily. 3. Tramadol 50 mg p.o. p.r.n. PHYSICAL EXAMINATION: VITAL SIGNS: Most recent vital signs include a temperature of 98.6 with a T-max of 98.6, pulse of 74, blood pressure is 98/52, saturating 94% on room air. Consultation Report [facility] [address] [place]. [address] NAME: TAMMY DOUGLAS : 51 STATUS : ADM IN PAT#: [id number] AGE: 61 ADM/REG DATE : 08/17/16 MR#: [id number] REPORT SERV DATE: 08/18/16 DICTATED BY: JOSE LUIS AWAN DATE: 08/18/16 REPORT STATUS : Draft TRANSCRIBED BY: OSCAR DATE: 08/18/16 GENERAL INSPECTION: Reveals an obese female, lying in bed, in no apparent distress. HEENT: Head is normocephalic, atraumatic with normal inspection of the oral mucosa with moist mucous membranes. Sclerae are nonicteric. Pupils are equal and round. NECK: Supple without lymphadenopathy. HEART: Rate is regular with normal S1, S2. LUNGS: Sounds clear to auscultation bilaterally. ABDOMEN: Soft, nontender, nondistended with normoactive bowel sounds. EXTREMITIES: The patient has no cyanosis, clubbing, or edema. SKIN: No jaundice or rash. NEURO: No gross motor deficits. She is alert and oriented. Mood and affect are appropriate. Judgment appears to be intact. LABORATORY DATA: Most recent laboratory results include a CBC with a white count of 13.0, hemoglobin of 7.2, and a platelet count of 239,000. Repeat hemoglobin after transfusion shows a hemoglobin of 7.9. Comprehensive metabolic panel demonstrated normal electrolytes and a normal BUN and creatinine. BUN was 12. Creatinine 0.6. LFTs were normal. DIAGNOSTIC STUDIES: CT of the abdomen and pelvis was performed and reviewed personally by myself. This demonstrated no acute abnormality within the abdomen or pelvis. There was note of a hiatal hernia sliding into the thoracic cavity with some inflammatory stranding in that area. ASSESSMENT AND PLAN: Mrs. Douglas is a very pleasant 61-year-old female with a history of chronic pain and NSAID use, who was seen just recently for upper gastrointestinal bleeding and was found to have a large Hector's ulcer just below her large hiatal hernia. She was discharged after two days in the hospital and now re-presents two days after her discharge with recurrent bleeding. We will perform EGD for further evaluation, continue to check the patient's hemoglobin every eight hours, and transfuse as felt appropriate. Keep the patient n.p.o. for the time being. We will plan on performing EGD and colonoscopy for further assessment of her rectal bleeding. Differential diagnosis includes recurrent bleeding from her ulcer versus lower gastrointestinal bleeding with her chief complaint being hematochezia. Thank you very much for this interesting consult and allowing me to participate in Mrs. Douglas's care. Please call with any questions or concerns you might have. ZAIRA/OSCAR Jose Luis Awan MD Consultation Report [place] [id number] [facility] [place] [address] NAME: TAMMY DOUGLAS : [birth year] STATUS : ADM IN [facility]#: [id number] AGE: 61 ADM/REG DATE : 08/17/16 MR#: [id number] REPORT SERV DATE: 08/18/16 DICTATED BY: JOSE LUIS AWAN DATE: 08/18/16 REPORT STATUS : Draft TRANSCRIBED BY: OSCAR DATE: 08/18/16 / [id number] CC: Sandor Tiwari MD
[2016-08-17 14:25] LABS: BASOPHILS 0.4 %; BASOPHILS ABSOLUTE 0.05 10/3/uL (0.0-0.16); EOSINOPHILS 1.2 %; EOSINOPHILS ABSOLUTE 0.16 10/3/uL (0.0-0.53); HEMOGLOBIN 7.2 g/dL (12.0-16.0); IMMATURE GRANULOCYTES 0.2 %; IMMATURE GRANULOCYTES ABSOLUTE 0.03 10/3/uL (0.0-0.11); LYMPHOCYTES 5.5 %; LYMPHOCYTES ABSOLUTE 0.71 10/3/uL (0.67-4.30); MEAN CORPUS HGB CONC 29.8 g/dL (32.0-36.0); MEAN CORPUSCULAR HEMOGLOB 21.7 pg (26.0-34.0); MEAN CORPUSCULAR VOLUME 72.9 fL (80-100); MEAN PLATELET VOLUME 9.1 fL (9.2-13.0); MONOCYTES 4.4 %; MONOCYTES ABSOLUTE 0.57 10/3/uL (0.21-1.20); NEUTROPHILS 88.3 %; NEUTROPHILS ABSOLUTE 11.49 10/3/uL (2.02-8.40); PLATELET COUNT 239 10/3/uL (150-400); RBC DISTRIBUTION WIDTH 23.1 % (12.0-16.0)
[2016-08-17 14:26] LABS: ER CBC TAT 0 Hrs 05 Mins; HEMATOCRIT 24.2 % (36.0-48.0); MANUAL DIFF NO %; RED CELL COUNT 3.32 10/6/uL (4.0-5.6)
[2016-08-17 14:38] LABS: INTERNATIONAL NORMAL RATI 1.1 UNITS (-); PARTIAL THROMBO TIME 26.5 SEC (22.5-37.2); PROTIME (NOT ORD) 14.1 SEC (12.0-14.5)
[2016-08-17 14:40] LABS: A/G RATIO 0.9 (0.7-1.9); ALBUMIN 2.6 G/DL (3.5-5.0); ALKALINE PHOSPHATASE 72 U/L (45-117); CALCIUM, SERUM 7.7 MG/DL (8.5-10.4); CHLORIDE, SERUM 113 MMOL/L (96-112); CO2 (CARBON DIOXIDE) 26 MMOL/L (24-34); CREATININE 0.61 MG/DL (0.55-1.02); GFR AFRICAN AMERICAN 112 ML/MIN (>=60); GFR NON AFRICAN AMERICAN 96 ML/MIN (>=60); GLOBULIN 2.8 G/DL (2.5-4.1); GLUCOSE, SERUM 103 MG/DL (60-99); POTASSIUM, SERUM 4.1 MMOL/L (3.5-5.3); SGOT(AST) 36 U/L (5-40); SGPT(ALT) 33 U/L (5-65); SODIUM, SERUM 138 MMOL/L (135-148); TOTAL BILIRUBIN 0.3 MG/DL (0-1.2); TOTAL PROTEIN 5.4 G/DL (6.0-8.5)
[2016-08-17 14:42] LABS: BUN (BLOOD UREA NITROGEN) 12 MG/DL (6-23); PLATELET ESTIMATE ADQ (ADEQUATE)
[2016-08-17 14:43] LABS: RBC MORPHOLOGY ABN (NORMAL)
[~2016-08-17 15:16] MED LIST changes: +8 HOUR650 MG PO; +PRILO PO; +STAY AWAKE PO; +SUCR PO; +T PO; +ULTRAM50 PO
[2016-08-17 20:25] LABS: HEMATOCRIT 25.8 % (36.0-48.0); HEMOGLOBIN 7.9 g/dL (12.0-16.0)
[2016-08-18 15:33] LABS: BASOPHILS 1.2 %; BASOPHILS ABSOLUTE 0.07 10/3/uL (0.0-0.16); EOSINOPHILS ABSOLUTE 0.12 10/3/uL (0.0-0.53); HEMATOCRIT 25.8 % (36.0-48.0); IMMATURE GRANULOCYTES 0.2 %; IMMATURE GRANULOCYTES ABSOLUTE 0.01 10/3/uL (0.0-0.11); LYMPHOCYTES 27.8 %; LYMPHOCYTES ABSOLUTE 1.68 10/3/uL (0.67-4.30); MEAN CORPUSCULAR HEMOGLOB 23.2 pg (26.0-34.0); MEAN CORPUSCULAR VOLUME 74.8 fL (80-100); MEAN PLATELET VOLUME 9.5 fL (9.2-13.0); MONOCYTES 6.1 %; MONOCYTES ABSOLUTE 0.37 10/3/uL (0.21-1.20); NEUTROPHILS 62.7 %; NEUTROPHILS ABSOLUTE 3.79 10/3/uL (2.02-8.40); PLATELET COUNT 205 10/3/uL (150-400); RED CELL COUNT 3.45 10/6/uL (4.0-5.6)
[2016-08-18 15:38] LABS: MANUAL DIFF NO %
[2016-08-18 15:45] LABS: ALBUMIN 2.7 G/DL (3.5-5.0); BUN (BLOOD UREA NITROGEN) 8 MG/DL (6-23); CALCIUM, SERUM 7.9 MG/DL (8.5-10.4); CHLORIDE, SERUM 112 MMOL/L (96-112); CO2 (CARBON DIOXIDE) 26 MMOL/L (24-34); CREATININE 0.56 MG/DL (0.55-1.02); GFR AFRICAN AMERICAN 115 ML/MIN (>=60); GFR NON AFRICAN AMERICAN 99 ML/MIN (>=60); GLUCOSE, SERUM 96 MG/DL (60-99); PHOSPHORUS, SERUM 2.6 MG/DL (2.5-4.5); POTASSIUM, SERUM 3.7 MMOL/L (3.5-5.3); SODIUM, SERUM 143 MMOL/L (135-148)
[2016-08-19 06:19] LABS: BASOPHILS 1.3 %; BASOPHILS ABSOLUTE 0.05 10/3/uL (0.0-0.16); EOSINOPHILS 6.1 %; EOSINOPHILS ABSOLUTE 0.24 10/3/uL (0.0-0.53); HEMATOCRIT 24.4 % (36.0-48.0); HEMOGLOBIN 7.5 g/dL (12.0-16.0); IMMATURE GRANULOCYTES 0.5 %; IMMATURE GRANULOCYTES ABSOLUTE 0.02 10/3/uL (0.0-0.11); LYMPHOCYTES 32.7 %; LYMPHOCYTES ABSOLUTE 1.28 10/3/uL (0.67-4.30); MEAN CORPUS HGB CONC 30.7 g/dL (32.0-36.0); MEAN CORPUSCULAR HEMOGLOB 23.1 pg (26.0-34.0); MEAN CORPUSCULAR VOLUME 75.3 fL (80-100); MEAN PLATELET VOLUME 9.7 fL (9.2-13.0); MONOCYTES 9.7 %; MONOCYTES ABSOLUTE 0.38 10/3/uL (0.21-1.20); NEUTROPHILS 49.7 %; NEUTROPHILS ABSOLUTE 1.95 10/3/uL (2.02-8.40); PLATELET COUNT 199 10/3/uL (150-400); RBC DISTRIBUTION WIDTH 22.2 % (12.0-16.0); RED CELL COUNT 3.24 10/6/uL (4.0-5.6); WHITE BLOOD CELLS 3.9 10/3/uL (4.5-10.5)
[2016-08-19 06:23] LABS: MANUAL DIFF NO %
[2016-08-19 06:38] LABS: % IRON SAT 3 % (20-50); ALBUMIN 2.5 G/DL (3.5-5.0); ALKALINE PHOSPHATASE 60 U/L (45-117); BUN (BLOOD UREA NITROGEN) 6 MG/DL (6-23); CALCIUM, SERUM 8.5 MG/DL (8.5-10.4); CHLORIDE, SERUM 112 MMOL/L (96-112); CO2 (CARBON DIOXIDE) 26 MMOL/L (24-34); CREATININE 0.52 MG/DL (0.55-1.02); FERRITIN 8 NG/ML (8-252); GFR AFRICAN AMERICAN 118 ML/MIN (>=60); GFR NON AFRICAN AMERICAN 102 ML/MIN (>=60); GLOBULIN 2.5 G/DL (2.5-4.1); GLUCOSE, SERUM 87 MG/DL (60-99); IRON BINDING CAPACITY 311 MCG/DL (225-410); IRON, SERUM 8 MCG/DL (35-150); POTASSIUM, SERUM 3.9 MMOL/L (3.5-5.3); SGOT(AST) 14 U/L (5-40); SGPT(ALT) 23 U/L (5-65); SODIUM, SERUM 143 MMOL/L (135-148); TOTAL BILIRUBIN 0.3 MG/DL (0-1.2)
[2016-08-19 06:53] LABS: ANISOCYTOSIS 1+ (5-10/OIF) (0-5/OIF); MICROCYTES 1+ (5-10/OIF) (0-5/OIF); PLATELET ESTIMATE ADQ (ADEQUATE)
[2016-08-19 16:03] LABS: HEMATOCRIT 23.9 % (36.0-48.0); HEMOGLOBIN 7.4 g/dL (12.0-16.0)
[2016-08-20 05:30] LABS: BASOPHILS ABSOLUTE 0.05 10/3/uL (0.0-0.16); EOSINOPHILS 5.3 %; EOSINOPHILS ABSOLUTE 0.26 10/3/uL (0.0-0.53); HEMATOCRIT 24.6 % (36.0-48.0); HEMOGLOBIN 7.6 g/dL (12.0-16.0); IMMATURE GRANULOCYTES 0.4 %; IMMATURE GRANULOCYTES ABSOLUTE 0.02 10/3/uL (0.0-0.11); LYMPHOCYTES 28.5 %; LYMPHOCYTES ABSOLUTE 1.41 10/3/uL (0.67-4.30); MEAN CORPUS HGB CONC 30.9 g/dL (32.0-36.0); MEAN CORPUSCULAR HEMOGLOB 23.1 pg (26.0-34.0); MEAN CORPUSCULAR VOLUME 74.8 fL (80-100); MEAN PLATELET VOLUME 9.4 fL (9.2-13.0); MONOCYTES 7.5 %; MONOCYTES ABSOLUTE 0.37 10/3/uL (0.21-1.20); NEUTROPHILS 57.3 %; NEUTROPHILS ABSOLUTE 2.83 10/3/uL (2.02-8.40); PLATELET COUNT 225 10/3/uL (150-400); RBC DISTRIBUTION WIDTH 22.4 % (12.0-16.0); RED CELL COUNT 3.29 10/6/uL (4.0-5.6); WHITE BLOOD CELLS 4.9 10/3/uL (4.5-10.5)
[2016-08-20 05:37] LABS: BUN (BLOOD UREA NITROGEN) 5 MG/DL (6-23); CALCIUM, SERUM 8.3 MG/DL (8.5-10.4); CHLORIDE, SERUM 109 MMOL/L (96-112); CO2 (CARBON DIOXIDE) 26 MMOL/L (24-34); CREATININE 0.69 MG/DL (0.55-1.02); GFR AFRICAN AMERICAN 107 ML/MIN (>=60); GFR NON AFRICAN AMERICAN 93 ML/MIN (>=60); POTASSIUM, SERUM 3.7 MMOL/L (3.5-5.3); SODIUM, SERUM 142 MMOL/L (135-148)
[2016-08-20 05:38] LABS: GLUCOSE, SERUM 140 MG/DL (60-99)
[2016-08-20 05:48] LABS: MANUAL DIFF NO %
[2016-08-20 07:35] LABS: PLATELET ESTIMATE ADQ (ADEQUATE)
[2016-08-20 07:36] LABS: HYPOCHROMIA 1+ (3-10/OIF) (0-2/OIF); MICROCYTES 1+ (5-10/OIF) (0-5/OIF)
[2016-08-20 16:28] LABS: HEMATOCRIT 26.9 % (36.0-48.0); HEMOGLOBIN 8.2 g/dL (12.0-16.0)
[2016-08-21 06:49] LABS: BASOPHILS 1.6 %; BASOPHILS ABSOLUTE 0.07 10/3/uL (0.0-0.16); EOSINOPHILS 5.1 %; EOSINOPHILS ABSOLUTE 0.23 10/3/uL (0.0-0.53); HEMOGLOBIN 7.5 g/dL (12.0-16.0); IMMATURE GRANULOCYTES 0.4 %; IMMATURE GRANULOCYTES ABSOLUTE 0.02 10/3/uL (0.0-0.11); LYMPHOCYTES 27.5 %; LYMPHOCYTES ABSOLUTE 1.24 10/3/uL (0.67-4.30); MEAN CORPUS HGB CONC 31.1 g/dL (32.0-36.0); MEAN CORPUSCULAR HEMOGLOB 23.3 pg (26.0-34.0); MEAN CORPUSCULAR VOLUME 74.8 fL (80-100); MEAN PLATELET VOLUME 9.9 fL (9.2-13.0); MONOCYTES 11.1 %; NEUTROPHILS 54.3 %; NEUTROPHILS ABSOLUTE 2.45 10/3/uL (2.02-8.40); PLATELET COUNT 244 10/3/uL (150-400); RBC DISTRIBUTION WIDTH 22.9 % (12.0-16.0); RED CELL COUNT 3.22 10/6/uL (4.0-5.6); WHITE BLOOD CELLS 4.5 10/3/uL (4.5-10.5)
[2016-08-21 06:50] LABS: HEMATOCRIT 24.1 % (36.0-48.0)
[2016-08-21 06:51] LABS: MANUAL DIFF NO %
[2016-08-21 07:03] LABS: A/G RATIO 0.9 (0.7-1.9); ALBUMIN 2.7 G/DL (3.5-5.0); BUN (BLOOD UREA NITROGEN) 7 MG/DL (6-23); CALCIUM, SERUM 8.2 MG/DL (8.5-10.4); CHLORIDE, SERUM 108 MMOL/L (96-112); CO2 (CARBON DIOXIDE) 26 MMOL/L (24-34); GFR AFRICAN AMERICAN 112 ML/MIN (>=60); GFR NON AFRICAN AMERICAN 97 ML/MIN (>=60); SGOT(AST) 13 U/L (5-40); SGPT(ALT) 21 U/L (5-65); SODIUM, SERUM 141 MMOL/L (135-148); TOTAL BILIRUBIN 0.4 MG/DL (0-1.2); TOTAL PROTEIN 5.7 G/DL (6.0-8.5)
[2016-08-21 07:04] LABS: ALKALINE PHOSPHATASE 72 U/L (45-117); GLUCOSE, SERUM 81 MG/DL (60-99)
[2016-08-21 07:14] LABS: HYPOCHROMIA 1+ (3-10/OIF) (0-2/OIF); MICROCYTES 1+ (5-10/OIF) (0-5/OIF); PLATELET ESTIMATE ADQ (ADEQUATE)
[2016-08-21] MEDS ORDERED: HCTZ25B PO (11:12)
[2016-08-21] MEDS ORDERED: HABIT21 TOP (11:13)
[2016-08-21] MEDS ORDERED: FERROUS SULF325 M1 PO (11:13)
[2016-08-21] MEDS ORDERED: PROTONIX PO (11:14)
[2016-08-21] MEDS ORDERED: PCET PO (11:15)
== END 2016-08-21 14:01 | disposition home or self-care (01) | DRG 378 ==
LOC: ER 15:16 → 5SO 17:16
PROVIDERS: Emergency Medicine; Hospitalist; Internal Medicine; Internal Medicine Gastroenterology; Nurse Practitioner Family
PROC: 30233N1 Transfusion of Nonautologous Red Blood Cells into Peripheral Vein, Percutaneous Approach (ICD-10-PCS; 2016-08-17)
PROC: 0DBN8ZZ Excision of Sigmoid Colon, Via Natural or Artificial Opening Endoscopic (ICD-10-PCS; principal; 2016-08-18 08:54)
PROC: 0W3P8ZZ Control Bleeding in Gastrointestinal Tract, Via Natural or Artificial Opening Endoscopic (ICD-10-PCS; 2016-08-18 08:54)
PROC: 0D568ZZ Destruction of Stomach, Via Natural or Artificial Opening Endoscopic (ICD-10-PCS; 2016-08-18 08:54)
PROC: 0DB68ZX Excision of Stomach, Via Natural or Artificial Opening Endoscopic, Diagnostic (ICD-10-PCS; 2016-08-18 08:54)
DX: K25.4 Chronic or unspecified gastric ulcer with hemorrhage (principal); D62 Acute posthemorrhagic anemia; I10 Essential (primary) hypertension; K21.0 Gastro-esophageal reflux disease with esophagitis; J44.9 Chronic obstructive pulmonary disease, unspecified; G47.33 Obstructive sleep apnea (adult) (pediatric); D12.5 Benign neoplasm of sigmoid colon; K64.8 Other hemorrhoids; E66.9 Obesity, unspecified; Z68.35 Body mass index [BMI] 35.0-35.9, adult; M54.9 Dorsalgia, unspecified; F17.210 Nicotine dependence, cigarettes, uncomplicated
CPT/HCPCS: 36415; 74176; 80048; 80053; 80069; 82728; 83540; 83550; 83735; 85014; 85018; 85025; 85610; 85730; 86850; 86900; 86901; 86920; 88305; 88342; 93005; 96374; 99285; A9270-GY; C9113; J1170; J2405; P9016